=== PATIENT | female | born 1995 | race Caucasian/White ===

== ENCOUNTER 2017-01-18 20:03 | Emergency (ER) | payer OTHER ==
[2017-01-18 20:54] LABS: BASOPHIL 0.3 % (0-2); EOSINOPHIL 2.3 % (0-5); HCT 34.4 % (37.0-47.0); HGB 10.8 g/dl (12.5-16.0); LYMPHOCYTE 31.7 % (15-48); MCH 24.3 pg (25.0-31.0); MCHC 31.4 g/dL (32.0-36.0); MCV 77.5 fL (78.0-100.0); MONOCYTE 10.2 % (0-12); NEUTROPHIL 55.5 % (41-80); PLT 288 K/uL (150-400); RBC 4.44 M/uL (4.20-5.40); RDW 15.8 % (11.5-14.0); WBC 6.4 K/uL (4.0-10.5)
[2017-01-18 21:15] LABS: CREATININE 0.5 mg/dL (0.5-1.0); POTASSIUM 3.8 mmol/L (3.5-5.1)
== END 2017-01-18 22:47 | disposition other institution (70) ==
LOC: FER 20:03
PROVIDERS: Emergency Medicine Emergency Medical Services
DX: T22.112A Burn of first degree of left forearm, initial encounter (principal); T22.111A Burn of first degree of right forearm, initial encounter; T26.02XA Burn of left eyelid and periocular area, initial encounter; T26.01XA Burn of right eyelid and periocular area, initial encounter; T31.11 Burns involving 10-19% of body surface with 10-19% third degree burns; E86.9 Volume depletion, unspecified; D64.9 Anemia, unspecified; Z23 Encounter for immunization; Z88.0 Allergy status to penicillin; W40.1XXA Explosion of explosive gases, initial encounter; Y92.009 Unspecified place in unspecified non-institutional (private) residence as the place of occurrence of the external cause
CPT/HCPCS: 36415; 80048; 84703; 85025; 90471; J1885; J2405

== ENCOUNTER 2020-08-25 11:34 | Emergency (ER) | payer OTHER ==
[2020-08-25 12:31] LABS: BASOPHIL 0.5 % (0-2); EOSINOPHIL 2.2 % (0-5); HCT 42.2 % (37.0-47.0); HGB 12.8 g/dl (12.5-16.0); LYMPHOCYTE 24.9 % (15-48); MCH 25.6 pg (25.0-31.0); MCHC 30.3 g/dL (32.0-36.0); MCV 84.4 fL (78.0-100.0); MONOCYTE 9.6 % (0-12); NEUTROPHIL 62.6 % (41-80); NRBC 0; PLT 281 K/uL (150-400); RDW 15.3 % (11.5-14.0); WBC 5.9 K/uL (4.0-10.5)
[2020-08-25 12:38] LABS: BILIRUBIN NEGATIVE (NEGATIVE); BLOOD NEGATIVE Ery/uL (NEGATIVE); CLARITY CLEAR (CLEAR); COLOR YELLOW (YELLOW); GLUCOSE (U) NORMAL (NORMAL); LEUKOCYTES 1+ Leu/uL (NEGATIVE); NITRITE NEGATIVE (NEGATIVE); PROTEIN NEGATIVE (NEGATIVE); SPECIFIC GRAVITY 1.025 (1.001-1.030); UROBILINOGEN 0.2 mg/dL (0.2-1.0); pH 6.5 (5.0-9.0)
[2020-08-25 12:43] LABS: URINARY WBC 20-50
[2020-08-25 12:44] LABS: BACTERIA 3+; URINARY RBC RARE
[2020-08-25 12:45] LABS: MUCOUS MODERATE
[2020-08-25 13:14] LABS: ALBUMIN 3.5 g/dL (3.4-5.0); BILIRUBIN - TOTAL 0.3 mg/dL (0.2-1.0); BUN/CREAT RATIO (CALC) 18.2 RATIO; CREATININE 0.55 mg/dL (0.51-0.95); GLOBULIN (CALCULATION) 4.9 g/dL; POTASSIUM 3.7 mmol/L (3.5-5.1); TOTAL PROTEIN 8.4 g/dL (6.4-8.2)
[2020-08-25] MEDS ORDERED: MACROBID100 MG PO ×2 (16:04→16:07)
[2020-08-25] MEDS ORDERED: ZOFRAN4 M1 PO ×2 (16:04→16:07)
== END 2020-08-25 16:35 | disposition home or self-care (01) ==
LOC: FER 11:34
PROVIDERS: Emergency Medicine
DX: O21.0 Mild hyperemesis gravidarum (principal); Z3A.08 8 weeks gestation of pregnancy; Z88.0 Allergy status to penicillin
CPT/HCPCS: 36415; 76801; 80053; 81001; 84702; 85025; 87088; J2405; J7030